=== PATIENT | female | born 1995 ===

== ENCOUNTER 2023-11-23 11:26 | Outpatient (CLI) | payer OTHER ==
[2023-11-23] MEDS ORDERED: PRENATABS RX T1 EACH PO (15:06)
== END 2023-11-23 12:19 | disposition home or self-care (01) ==
LOC: NST 11:26
PROVIDERS: ATTEND Obstetrics & Gynecology Maternal & Fetal Medicine
DX: Z34.83 Encounter for supervision of other normal pregnancy, third trimester (principal)

== ENCOUNTER 2023-11-23 12:45 | Inpatient (IN) | payer OTHER ==
[~2023-11-23] VITALS: Ht 162.6 cm; Wt 2.7 kg
[2023-11-23] MEDS ORDERED: PRENATABS RX T1 EACH PO (15:06)
[2023-11-23 16:06] LABS: HEMATOCRIT 34.7 % (36.0-45.00); HEMOGLOBIN 11.5 g/dL (12.0-15.00); MEAN CELL VOLUME 80.9 fL (80.00-100.00); MEAN CORPUSCULAR HEMOGLOBIN 26.7 pg (27.00-32.0); MEAN CORPUSCULAR HGB CONC 33.1 g/dl (32.0-36.0); PLATELET COUNT 276 K/uL (150-450); RED BLOOD COUNT 4.29 M/uL (4.00-6.00); RED CELL DISTRIBUTION WIDTH 14.6 % (11.5-14.5)
[2023-11-23 16:29] LABS: INR < 0.93; PROTHROMBIN TIME 9.6 SECONDS (9.0-11.5)
[2023-11-23 16:39] LABS: BILIRUBIN TOTAL 0.34 mg/dL (0.3-1.2); CREATININE SERUM 0.54 mg/dL (0.55-1.02); GFR 133.47; GLOBULINA 4.2 G/DL (2.4-3.5); POTASSIUM 3.89 mEq/L (3.5-5.1); TOTAL PROTEIN 7.2 gm/dL (6.4-8.2)
[2023-11-29] MEDS ORDERED: IRON325 MG PO (09:53)
[2023-11-29] MEDS ORDERED: CITRIC ACID/SODIUM CITRATE 30 ML BLIST.PACK PO ONE (11:21)
[2023-11-29] MEDS ORDERED: OXYTOCIN 10 UNITS/ML VIAL ONE ×2 (11:59→18:33)
[2023-11-29] MEDS ORDERED: ERYTHROMYCIN BASE 1 GM TUBE OP ONE (11:59)
[2023-11-29] MEDS ORDERED: CEFAZOLIN SODIUM 1,000 MG VIAL IV ONE (13:00)
[2023-11-29] MEDS ORDERED: KETOROLAC TROMETHAMINE 30 MG VIAL ONE (16:01)
[2023-11-29] MEDS ORDERED: KETOROLAC TROMETHAMINE 30 MG VIAL IM ONE (16:10)
[2023-11-29] MEDS ORDERED: MEPERIDINE HCL/PF 50 MG,MEPERIDINE HCL/PF 25 MG IM PRN (16:45)
[2023-11-29] MEDS ORDERED: PROMETHAZINE HCL 25 MG/ML AMPUL IM PRN (16:45)
[2023-11-29] MEDS ORDERED: SIMETHICONE 125 MG CAPSULE PO SCH (17:00)
[2023-11-29] MEDS ORDERED: CEFOXITIN SODIUM 2,000 MG VIAL IV SCH (17:00)
[2023-11-29] MEDS ORDERED: CEFOXITIN SODIUM 2,000 MG VIAL IV ONE (18:34)
[2023-11-29 19:27] LABS: HEMATOCRIT 30.3 % (36.0-45.00); MEAN CELL VOLUME 81.3 fL (80.00-100.00); MEAN CORPUSCULAR HEMOGLOBIN 26.8 pg (27.00-32.0); MEAN CORPUSCULAR HGB CONC 32.9 g/dl (32.0-36.0); PLATELET COUNT 212 K/uL (150-450); RED BLOOD COUNT 3.73 M/uL (4.00-6.00); RED CELL DISTRIBUTION WIDTH 16.3 % (11.5-14.5)
[2023-11-30] MEDS ORDERED: KETOROLAC TROMETHAMINE 10 MG TABLET PO SCH
[2023-11-30 07:17] LABS: HEMOGLOBIN 9.8 g/dL (12.0-15.00); MEAN CELL VOLUME 80.9 fL (80.00-100.00); MEAN CORPUSCULAR HEMOGLOBIN 27.2 pg (27.00-32.0); MEAN CORPUSCULAR HGB CONC 33.6 g/dl (32.0-36.0); PLATELET COUNT 200 K/uL (150-450); RED BLOOD COUNT 3.59 M/uL (4.00-6.00); RED CELL DISTRIBUTION WIDTH 16.1 % (11.5-14.5)
[2023-11-30] MEDS ORDERED: OxyCODONE HCL/APAP UD (PERCOCET) PO SCH (09:00)
== END 2023-12-02 15:32 | disposition home or self-care (01) | DRG 788 ==
LOC: OB/GYN 11-29 09:15 → O/R 11-29 09:32 → OB/GYN 11-29 12:45
PROVIDERS: ADMIT Obstetrics & Gynecology Maternal & Fetal Medicine; ATTEND Obstetrics & Gynecology Maternal & Fetal Medicine
PROC: 4A1HXCZ Monitoring of Products of Conception, Cardiac Rate, External Approach (ICD-10-PCS; 2023-11-29)
PROC: 10D00Z1 Extraction of Products of Conception, Low, Open Approach (ICD-10-PCS; principal; 2023-11-29 09:15)
DX: O32.1XX0 Maternal care for breech presentation, not applicable or unspecified (principal); Z3A.38 38 weeks gestation of pregnancy; Z37.0 Single live birth; Z20.822 Contact with and (suspected) exposure to COVID-19